=== PATIENT | female | born 1950 | race Caucasian/White ===

== ENCOUNTER → 2016-10-30 | Outpatient (CLI) | payer MEDICARE ==
[~2016-10-30] MED LIST: IOHEXOL 240 MG/ML 50ML VIAL. PO ONE; IOHEXOL 300 MG/ML 75 ML VIAL. IV ONE
--- NOTE | 2016-10-30 09:37 | RAD ---
Indication abdominal pain for 3 months. Intermittent diarrhea. Axial images of the abdomen and pelvis were obtained. Both oral and IV contrast were administered. Approximately 75 cc of Omnipaque 300 was administered. No prior imaging of the abdomen or pelvis is available. The lung bases are clear. The liver and spleen appear normal. The gallbladder appears grossly normal. No pancreatic abnormality is seen. There are no adrenal masses seen. There is a subcentimeter low-density mass associated with the left kidney most compatible with a small cyst. No definite significant finding is seen associated with either kidney. No acute finding is apparent in the abdomen. The pelvis is unremarkable. Occasional diverticula are noted associated with the large bowel. No active inflammation or acute finding in the pelvis is seen. IMPRESSION: No acute finding seen in the abdomen PQRS Compliance Statement: One or more of the following individualized dose reduction techniques were utilized for this examination: 1. Automated exposure control 2. Adjustment of the mA and/or kV according to patient size 3. Use of iterative reconstruction technique
== END | disposition home or self-care (01) ==
LOC: CT 07:35
PROVIDERS: ATTEND Physician Assistant Medical
DX: N28.89 Other specified disorders of kidney and ureter (principal); I48.91 Unspecified atrial fibrillation; I10 Essential (primary) hypertension; Z79.01 Long term (current) use of anticoagulants; K57.30 Diverticulosis of large intestine without perforation or abscess without bleeding
CPT/HCPCS: 74177; Q9967

== ENCOUNTER → 2018-08-02 | Day surgery (SDC) | payer MEDICARE ==
[~2018-08-02] MED LIST changes: +ALBUTEROL SULFATE 2.5 MG/3 ML NEBU. NEB PRN; +APIX5TAB3 PO; +ATROPINE 0.5 MG/5 ML DISP.SYRIN. IV PRN; +CALC667C PO; -IOHEXOL 240 MG/ML 50ML VIAL. PO ONE; -IOHEXOL 300 MG/ML 75 ML VIAL. IV ONE; +LIDOCAINE 2% PF Vial for OR 5 ML VIAL. ONE; +MAGN400T3 PO; +METO25TA2 PO; +NALOXONE 0.4 MG/ML VIAL. IV PRN; +ONDANSETRON PF 4 MG/2 ML VIAL. IV PRN; +PRAV40TA2 PO; +PROP225C2 PO; +PROPOFOL 40 ML IV ONE; +UBID60CA2 PO; +diphenhydrAMINE 50 MG/ML VIAL IV PRN
[2018-08-02] MEDS: IV RINGERS SOLUTION,LACTATED 1,000 ML IV SCH (12:28)
[2018-08-02 14:35] VITALS: BP 136/72
== END | disposition home or self-care (01) ==
LOC: SURG 11:56
PROVIDERS: ATTEND Internal Medicine Gastroenterology
DX: R19.7 Diarrhea, unspecified (principal); R19.4 Change in bowel habit; I10 Essential (primary) hypertension; I48.0 Paroxysmal atrial fibrillation; E78.5 Hyperlipidemia, unspecified; Z86.73 Personal history of transient ischemic attack (TIA), and cerebral infarction without residual deficits; Z83.3 Family history of diabetes mellitus; Z82.49 Family history of ischemic heart disease and other diseases of the circulatory system; Z72.89 Other problems related to lifestyle; K21.9 Gastro-esophageal reflux disease without esophagitis; Z88.2 Allergy status to sulfonamides; Z79.899 Other long term (current) drug therapy; Z90.721 Acquired absence of ovaries, unilateral; Z90.49 Acquired absence of other specified parts of digestive tract; Z98.890 Other specified postprocedural states; F32.9 Major depressive disorder, single episode, unspecified; I25.2 Old myocardial infarction; F41.9 Anxiety disorder, unspecified; Z85.828 Personal history of other malignant neoplasm of skin
CPT/HCPCS: 45380; J2704; J7120; J2001

== ENCOUNTER → 2020-01-24 | Outpatient (CLI) | payer MEDICARE ==
[2018-08-02 14:35] VITALS: BP 136/72
[~2020-01-24] MED LIST changes: -ALBUTEROL SULFATE 2.5 MG/3 ML NEBU. NEB PRN; -ATROPINE 0.5 MG/5 ML DISP.SYRIN. IV PRN; -LIDOCAINE 2% PF Vial for OR 5 ML VIAL. ONE; -MAGN400T3 PO; +MAGN400T5 PO; -NALOXONE 0.4 MG/ML VIAL. IV PRN; -ONDANSETRON PF 4 MG/2 ML VIAL. IV PRN; -PROPOFOL 40 ML IV ONE; -UBID60CA2 PO; +UBID60CA4 PO; -diphenhydrAMINE 50 MG/ML VIAL IV PRN
--- NOTE | 2020-01-24 10:10 | RAD ---
EXAM: Renal sonogram. HISTORY: Hematuria. Left flank pain. TECHNIQUE: Sonographic imaging of the kidneys and bladder was performed. COMPARISON: CT dated 10/30/2016. FINDINGS: The right kidney measures 10.2 cm [id number]. The left kidney measures 11.5 cm [id number]. There is a suspected 1.1 cm simple left renal cyst. There is no hydronephrosis. The bladder is not well seen due to the post void assess the patient. The aorta is normal in caliber. The inferior vena cava is patent. IMPRESSION: 1. Tiny suspected simple left renal cyst. This is stable in appearance. 2. No acute sonographic finding. 3. Limited evaluation of the bladder due to the post void status of the patient. Electronically signed by: Shantel Tracy MD (01/24/2020 10:07 AM) [id number]
== END ==
LOC: US 09:38
PROVIDERS: ATTEND Physician Assistant Medical
DX: N28.1 Cyst of kidney, acquired (principal); R31.9 Hematuria, unspecified
CPT/HCPCS: 76770

== ENCOUNTER → 2020-12-10 | Outpatient (CLI) | payer MEDICARE ==
[2018-08-02 14:35] VITALS: BP 136/72
--- NOTE | 2020-12-11 08:54 | RAD ---
XR KNEE 3 VIEWS_RT History: Right knee pain for 6 weeks Comparison: None. Technique: 3 views of the right knee Findings: Osseous mineralization is normal. No fracture or dislocaton. Medial tibiofemoral and patellofemoral c ompartment narrowing. Mild tricompartmental osteophytes. No significant knee effusion. No focal soft tissue swelling. Impression: 1. Moderate right knee osteoarthritis without acute osseous abnormality. Electronically signed by: Sudeep Brian MD (12/11/2020 8:52 AM) [id number]
== END ==
LOC: RAD 11:24
PROVIDERS: ATTEND Physician Assistant Medical
DX: M17.11 Unilateral primary osteoarthritis, right knee (principal); M25.761 Osteophyte, right knee
CPT/HCPCS: 73562